=== PATIENT | female | born 1980 | race Two or more races ===

== ENCOUNTER 2017-09-17 08:32 | Emergency (ER) | payer BC, OTHER ==
[2017-09-17 08:44] VITALS: TEMP 98.4; BMI 25.8
--- NOTE | 2017-09-17 10:15 | PDOC ---
History of Present Illness - General History Source: Patient Exam Limitations: No Limitations - History of Present Illness Initial Comments: 09/17/17 10:52 The patient is a 36 year old female, with no significant past medical history who presents to the emergency department s/p head injury. Patient reports climbing up the stairs and hit the top of her head on a low ceiling. Patient immediately experienced room spins, double vision and dizziness. Patient reports intermittent parietal headache, 6/10 in severity, throbbing in nature with associated nausea. Patient reports pain is exacerbated when standing up. Due to persistent symptoms, patient reports to the ED for further evaluation. Patient denies any LOC, change in strength or sensation. Patient denies fever, chills, abdominal pain, nausea, vomit, diarrhea or constipation. Patient denies dysuria, frequency, urgency or hematuria. Patient denies sick contacts or recent travel. Allergies: NKA Past surgical history: Cholecystectomy Social history: None PCP: None <Mili Bermudez - Last Filed: 09/17/17 10:51> <Kanchan Nur - Last Filed: 09/17/17 14:26> - General Chief Complaint: Injury Stated Complaint: CONCUSSION Time Seen by Provider: 09/17/17 10:14 Past History <Mili Bermudez - Last Filed: 09/17/17 10:51> - Past Medical History COPD: No - Surgical History Cholecystectomy: Yes - Suicide/Smoking/Psychosocial Hx Smoking History: Never smoked Have you smoked in the past 12 months: No Information on smoking cessation initiated: No Hx Alcohol Use: No Drug/Substance Use Hx: No Substance Use Type: None <Kanchan Nur - Last Filed: 09/17/17 14:26> - Past Medical History Allergies/Adverse Reactions: Allergies Allergy/AdvReac Type Severity Reaction Status Date / Time No Known Allergies Allergy Verified 09/17/17 08:40 Home Medications: Ambulatory Orders Cholecalciferol (Vitamin D3) [Vitamin D3 -] 1,000 unit PO HS 09/17/17 Review of Systems - Review of Systems Able to Perform ROS?: Yes Comments:: 09/17/17 10:52 GENERAL/CONSTITUTIONAL: No fever or chills. No weakness. HEAD, EYES, EARS, NOSE AND THROAT: No change in vision. No ear pain or discharge. No sore throat. GASTROINTESTINAL: No nausea, vomiting, diarrhea or constipation. GENITOURINARY: No dysuria, frequency, or change in urination. CARDIOVASCULAR: No chest pain or shortness of breath. RESPIRATORY: No cough, wheezing, or hemoptysis. MUSCULOSKELETAL: No joint or muscle swelling or pain. No neck or back pain. SKIN: No rash NEUROLOGIC: + headache, vertigo, loss of consciousness, or change in strength/ sensation. ENDOCRINE: No increased thirst. No abnormal weight change. HEMATOLOGIC/LYMPHATIC: No anemia, easy bleeding, or history of blood clots. ALLERGIC/IMMUNOLOGIC: No hives or skin allergy. <Mili Bermudez - Last Filed: 09/17/17 10:51> *Physical Exam - Vital Signs Last Vital Signs Temp Pulse Resp BP Pulse Ox 98.4 F 85 18 143/79 100 09/17/17 08:40 09/17/17 08:40 09/17/17 08:40 09/17/17 08:40 09/17/17 08:40 <Mili Bermudez - Last Filed: 09/17/17 10:51> - Vital Signs Last Vital Signs Temp Pulse Resp BP Pulse Ox 98.4 F 85 18 143/79 100 09/17/17 08:40 09/17/17 08:40 09/17/17 08:40 09/17/17 08:40 09/17/17 08:40 <Kanchan Nur - Last Filed: 09/17/17 14:26> ED Treatment Course - Medications Given in the ED: ED Medications Discontinued Medications Generic Name Dose Route Start Last Admin Trade Name Freq PRN Reason Stop Dose Admin Metoclopramide HCl 10 mg 09/17/17 10:27 09/17/17 10:49 Reglan Injection - IVPB 09/17/17 10:28 10 mg ONCE ONE Administration <Mili Bermudez - Last Filed: 09/17/17 10:51> *DC/Admit/Observation/Transfer - Attestations Scribe Attestion: 09/17/17 10:52 Documentation prepared by Mili Bermudez, acting as biomedical engineering technician for Kanchan Nur MD <Mili Bermudez - Last Filed: 09/17/17 10:51> - Discharge Dispostion Admit: No <Kanchan Nur - Last Filed: 09/17/17 14:26> Diagnosis at time of Disposition: Head injury Qualifiers: Encounter type: initial encounter Qualified Code(s): S09.90XA - Unspecified injury of head, initial encounter - Discharge Dispostion Disposition: HOME Condition at time of disposition: Stable - Patient Instructions Printed Discharge Instructions: DI for Concussion, DI for Closed Head Injury - Post Discharge Activity Forms/Work/School Notes: Back to Work
[2017-09-17] MEDS ORDERED: SODIUM CHLORIDE 1,000 ML IV STA (10:27)
[2017-09-17] MEDS ORDERED: METOCLOPRAMIDE HCL INJECTION 10 MG/2 ML VIAL IVPB ONE (10:27)
[2017-09-17] MEDS ORDERED: ACETAMINOPHEN 1000 MG/100 ML VIAL (NON FORMULARY) IVPB ONE (10:27)
[2017-09-17] MEDS ORDERED: METOCLOPRAMIDE HCL INJECTION 10 MG/2 ML VIAL ONE (10:33)
[2017-09-17] MEDS ORDERED: ACETAMINOPHEN INJECTION 100 ML IVPB ONE (11:46)
[2017-09-17 14:38] VITALS: BP 135/70; PULSE 80
== END 2017-09-17 14:40 | disposition home or self-care (01) ==
LOC: JER 08:32 → JERFT 08:32 → JER 14:40
PROC: 3E033NZ Introduction of Analgesics, Hypnotics, Sedatives into Peripheral Vein, Percutaneous Approach (ICD-10-PCS; principal; 2017-09-17)
PROC: 3E033GC Introduction of Other Therapeutic Substance into Peripheral Vein, Percutaneous Approach (ICD-10-PCS; 2017-09-17)
DX: S09.8XXA Other specified injuries of head, initial encounter (principal); S06.0X0A Concussion without loss of consciousness, initial encounter; W22.8XXA Striking against or struck by other objects, initial encounter; Y93.89 Activity, other specified; Y92.89 Other specified places as the place of occurrence of the external cause; Y99.8 Other external cause status
CPT/HCPCS: 70450-TC; 84703; 99283-25